=== PATIENT | male | born 1955 | race Caucasian/White ===

== ENCOUNTER 2020-02-14 08:37 | Emergency (ER) | payer BC ==
[~2020-02-14] VITALS: Ht 170.2 cm; Wt 70.0 kg
[~2020-02-14 08:37] MED LIST: LORTAB 7.57.5 MG PO
[2020-02-14] MEDS ORDERED: TOPROL XL25 M1 PO (08:54)
[2020-02-14] MEDS ORDERED: LISINOPRIL2.5 MG PO (08:55)
[2020-02-14] MEDS ORDERED: CLOPIDOGREL75 MG PO (08:55)
[2020-02-14] MEDS ORDERED: ATORVASTATIN CA40 MG PO (09:22)
[2020-02-14 09:32] LABS: HEMATOCRIT 45.7 % (39.0-50.0); HEMOGLOBIN 15.1 g/dl (14.0-18.0); IMMATURE GRANULOCYTES 0.2 % (0.0-5.0); MEAN CELL VOLUME 87.9 fL CALC (80.0-100.0); NEUT# 3.21 thou/uL (1.82-7.42); RED BLOOD COUNT 5.2 mill/uL (4.70-6.10); RED CELL DISTRI WIDTH 13.2 % (11.5-15.5)
[2020-02-14 09:51] LABS: ALBUMIN 4.5 g/dL (3.2-5.0); ALKALINE PHOSPHATASE 71 u/l (38-126); ANION GAP 14 (6-22 (CALC)); BILIRUBIN, TOTAL 0.6 mg/dL (0.0-1.4); BUN 12 mg/dL (8-23); BUN/CREATININE RATIO 14 (12-20 (CALC)); CARBON DIOXIDE 24 mmol/l (22-30); CHLORIDE 105 mmol/l (95-108); CREATININE 0.8 mg/dL (0.7-1.3); GFR > 60 ML/MIN (>=60 (CALC)); GFR FOR AFR.AMER. > 60 ML/MIN (>=60 (CALC)); POTASSIUM 4.6 mmol/l (3.5-5.1); SGOT/AST 23 u/l (19-48); SODIUM 137 mmol/l (137-146); TOTAL PROTEIN 7.5 g/dL (6.3-8.2)
[2020-02-14 09:57] LABS: INTERNATIONAL NORMALIZED RATIO 1.1 RATIO (0.7-1.3); PROTHROMBIN TIME 10.5 SECONDS (9.0-12.5)
[2020-02-14 11:12] VITALS: BP 117/78
== END 2020-02-14 11:12 | disposition home or self-care (01) | DRG 921 ==
LOC: ED 08:37
PROVIDERS: Student in an Organized Health Care Education/Training Program
DX: L76.21 Postprocedural hemorrhage of skin and subcutaneous tissue following a dermatologic procedure (principal); C44.509 Unspecified malignant neoplasm of skin of other part of trunk; I10 Essential (primary) hypertension; I25.2 Old myocardial infarction; E78.5 Hyperlipidemia, unspecified; Y83.8 Other surgical procedures as the cause of abnormal reaction of the patient, or of later complication, without mention of misadventure at the time of the procedure; Z95.1 Presence of aortocoronary bypass graft; Z79.02 Long term (current) use of antithrombotics/antiplatelets